=== PATIENT | male | born 1995 | race Caucasian/White ===

== ENCOUNTER 2017-03-25 03:29 | Emergency (ER) | payer BC ==
[~2017-03-25] VITALS: Ht 188 cm; Wt 72.7 kg
[2017-03-25 03:34] VITALS: TEMP 98.4
[2017-03-25] MEDS ORDERED: CEPHALEXIN500 M1 PO (04:36)
[2017-03-25 06:15] VITALS: BP 117/64; PULSE 79
== END 2017-03-25 06:15 | disposition home or self-care (01) ==
LOC: COL.ER 03:29
DX: S66.324A Laceration of extensor muscle, fascia and tendon of right ring finger at wrist and hand level, initial encounter (principal); S66.126A Laceration of flexor muscle, fascia and tendon of right little finger at wrist and hand level, initial encounter; W26.0XXA Contact with knife, initial encounter

== ENCOUNTER 2017-06-07 12:30 | Outpatient (RCR) | payer BC ==
[~2017-06-07 12:30] MED LIST: CEPHALEXIN500 M1 PO
== END 2017-06-21 16:46 | disposition home or self-care (01) ==
LOC: WSOT 12:30
DX: Z47.89 Encounter for other orthopedic aftercare (principal); Z98.890 Other specified postprocedural states